=== PATIENT | male | born 1990 | race African-American/Black ===

== ENCOUNTER 2019-06-20 00:26 | Emergency (ER) | payer MEDICAID ==
[~2019-06-20] VITALS: Ht 182.9 cm; Wt 88.0 kg
[2019-06-20] MEDS ORDERED: IPRATROPIUM BROMIDE (0.02%) 0.5MG/2.5ML NEB HHN STA (01:43)
[2019-06-20] MEDS ORDERED: ALBUTEROL (0.083%) 2.5MG/3ML NEB HHN STA (01:43)
[2019-06-20 03:48] VITALS: BP 132/88
== END 2019-06-20 03:54 | disposition home or self-care (01) ==
LOC: ER 00:26
DX: J45.901 Unspecified asthma with (acute) exacerbation (principal)
CPT/HCPCS: 94640; 99283; Z7610